=== PATIENT | female | born 2000 | race Caucasian/White ===

== ENCOUNTER 2024-05-04 05:35 | Inpatient (IN) | payer OTHER, SELFPAY ==
[~2024-05-04] VITALS: Ht 165.1 cm; Wt 87.2 kg
[2024-05-04] VITALS (9 sets, daily range): BP systolic 109–122; BP diastolic 57–80; TEMP 97.4; O2SAT 96–100
[~2024-05-04 05:35] MED LIST: BUPR-597 PO; LEXA1TAB2 PO; PANT40TA29 PO; PROP60TA14 PO
[2024-05-04] MEDS ORDERED: HOME MED LIST COMPLETE! XX SCH (06:15)
[2024-05-04] MEDS: LACTATED RINGER'S 1000 ML IV STA (06:29)
[2024-05-04 06:48] LABS: HEMOGLOBIN 9.5 g/dl (12.0-15.5); MEAN CORPUSCULAR HEMOGLOBIN 22.4 pg (27.0-33.0); MEAN CORPUSCULAR HGB CONC 29.7 g/dl (32.0-36.5); MEAN CORPUSCULAR VOLUME 75.3 fl (80.0-96.0); PLATELET COUNT, AUTOMATED 248 10^3/uL (150-450); RED BLOOD COUNT 4.25 10^6/uL (4.00-5.40); WHITE BLOOD COUNT 14.5 10^3/uL (4.0-10.0)
[2024-05-04] MEDS ORDERED: METOCLOPRAMIDE INJ 10MG/2ML VIAL As Ordered ONE (07:12)
[2024-05-04] MEDS ORDERED: KETOROLAC 60MG 2ML VIAL As Ordered ONE (07:12)
[2024-05-04] MEDS ORDERED: ONDANSETRON 4MG 2ML VIAL As Ordered ONE (07:12)
[2024-05-04] MEDS: BICITRA 30ML SOLN UDC PO ONE (07:14)
[2024-05-04] MEDS ORDERED: MORPHINE PRES-FREE INJ 10 MG/10 ML VIAL As Ordered ONE (07:14)
[2024-05-04] MEDS: ceFAZolin SOD 2 GM in IV 1 EA IV ONE (07:15)
[2024-05-04] MEDS: LR 1,000 ML IV SCH ×2 (07:19→09:15)
[2024-05-04 07:42] LABS: HEPATITIS C VIRUS ABY INDEX 0.03 INDEX (<0.8)
[2024-05-04] MEDS ORDERED: OXYTOCIN 30UNITS IN 0.9% NaCl 500ML IV BAG As Ordered ONE (08:02)
[2024-05-04] MEDS ORDERED: PHENYLephrine 500MCG 5ML (100MCG/ML) SYRINGE As Ordered ONE (08:04)
[2024-05-04] MEDS ORDERED: ePHEDrine SULFATE 25 MG/5 ML(5MG/ML) SYRINGE As Ordered ONE (08:04)
[2024-05-04] MEDS ORDERED: ACETAMINOPHEN 1000MG/100ML IV BAG As Ordered ONE (08:14)
[2024-05-04] MEDS ORDERED: buPROPion **XL** TABLET 150MG (WELLBUTRIN XL) PO SCH (09:00)
[2024-05-04] MEDS: PRENATAL VITAMINS CHEWABLE TABLET PO SCH (09:00)
[2024-05-04] MEDS ORDERED: ESCITALOPRAM OXALATE 10 MG TAB (LEXAPRO) PO SCH (09:00)
[2024-05-04] MEDS ORDERED: PANTOPRAZOLE 40MG TAB (PROTONIX) PO SCH (09:00)
[2024-05-04] MEDS ORDERED: ONDANSETRON 4MG TAB PO PRN (09:10)
[2024-05-04] MEDS ORDERED: SIMETHICONE 80MG CHEW TAB PO PRN (09:10)
[2024-05-04] MEDS ORDERED: ONDANSETRON 4MG 2ML VIAL IV PRN (09:15)
[2024-05-04] MEDS ORDERED: oxyCODONE 5MG TAB PO PRN (09:15)
[2024-05-04] MEDS ORDERED: METOCLOPRAMIDE INJ 10MG/2ML VIAL IV PRN (09:15)
[2024-05-04] MEDS ORDERED: NALOXONE INJ 0.4MG/1ML VIAL IV PRN ×2 (09:15)
[2024-05-04] MEDS: SLF 3 ML SYR IV SCH (09:15)
[2024-05-04] MEDS ORDERED: fentaNYL 100 MCG/2 ML INJECTION IV PRN (09:15)
[2024-05-04] MEDS ORDERED: **NOTE PATIENT COMMENT** MISC XX SCH (09:15)
[2024-05-04] MEDS ORDERED: diphenhydrAMINE 50MG/ML VIAL IV PRN (09:15)
[2024-05-04] MEDS: OXYTOCIN DRIP 30 UNITS in IV 1 EA IV SCH (09:21)
[2024-05-04] MEDS: ACETAMINOPHEN 500 MG TAB PO SCH (14:55)
[2024-05-04] MEDS: KETOROLAC 30 MG/ML 1ML VIAL IV SCH (15:00)
[2024-05-04] MEDS: PROPRANOLOL 20 MG TAB PO SCH (20:07)
[2024-05-04] MEDS: PANTOPRAZOLE 40MG TAB (PROTONIX) PO SCH (20:08)
[2024-05-04] MEDS: buPROPion **XL** TABLET 150MG (WELLBUTRIN XL) PO SCH (20:08)
[2024-05-04] MEDS: ESCITALOPRAM OXALATE 10 MG TAB (LEXAPRO) PO SCH (20:09)
[2024-05-05] VITALS (7 sets, daily range): BP systolic 110–136; BP diastolic 59–86; O2SAT 97–100
[2024-05-05 06:38] LABS: HEMATOCRIT 30.3 % (36.0-47.0); HEMOGLOBIN 9.1 g/dl (12.0-15.5); MEAN CORPUSCULAR HEMOGLOBIN 23.1 pg (27.0-33.0); MEAN CORPUSCULAR VOLUME 76.9 fl (80.0-96.0); PLATELET COUNT, AUTOMATED 249 10^3/uL (150-450); RED BLOOD COUNT 3.94 10^6/uL (4.00-5.40); WHITE BLOOD COUNT 16.2 10^3/uL (4.0-10.0)
[2024-05-05] MEDS: IBUPROFEN 600MG TAB PO SCH (08:43)
[2024-05-05] MEDS: RHOGAM 300MCG (1500IU) INJ IM SCH (09:44)
[2024-05-05] MEDS: MEASLES,MUMPS,RUBELLA VACCINE INJ (MMR-II) SC.IMMUN ONE (09:44)
[2024-05-05] MEDS ORDERED: SLF 3 ML SYR IV PRN (10:05)
[2024-05-05] MEDS: SLF 3 ML SYR IV SCH (13:44)
[2024-05-05] MEDS: oxyCODONE 5MG TAB PO PRN (14:54)
[2024-05-06 02:00] VITALS: BP 118/80; O2SAT 97
[2024-05-06] MEDS: oxyCODONE 5MG TAB PO PRN (05:18)
[2024-05-06 06:00] VITALS: BP 126/79; O2SAT 98
[2024-05-06] MEDS: DOCUSATE SODIUM 100MG CAPSULE PO PRN (08:12)
[2024-05-06 10:03] VITALS: BP 127/76; O2SAT 96
[2024-05-06] MEDS: diphenhydrAMINE 25MG CAP PO SCH (10:27)
[2024-05-06 18:00] VITALS: BP 136/83; O2SAT 96
[2024-05-07 06:19] VITALS: BP 112/75; O2SAT 97
== END 2024-05-07 12:17 | disposition home or self-care (01) | DRG 788 ==
LOC: M LDI 05:35 → M OBS 10:25
PROVIDERS: ADMIT Obstetrics & Gynecology; ATTEND Obstetrics & Gynecology
PROC: 10D00Z1 Extraction of Products of Conception, Low, Open Approach (ICD-10-PCS; principal; 2024-05-04 07:30)
DX: O80 Encounter for full-term uncomplicated delivery (principal); Z37.0 Single live birth; Z3A.39 39 weeks gestation of pregnancy; Z91.018 Allergy to other foods; Z88.8 Allergy status to other drugs, medicaments and biological substances; Z79.899 Other long term (current) drug therapy